=== PATIENT | female | born 1965 | race Caucasian/White ===

== ENCOUNTER → 2024-03-01 08:07 | Outpatient (REF) | payer BC, SELFPAY ==
[2024-03-01 08:35] VITALS: BP 122/72; BP_SYST 70
== END ==
LOC: RADI 08:07
PROVIDERS: ATTENDING PHYSICIAN Internal Medicine Rheumatology; FAMILY PHYSICIAN Family Medicine
DX: T82.594A Other mechanical complication of infusion catheter, initial encounter (principal); Y82.8 Other medical devices associated with adverse incidents
CPT/HCPCS: 76000

== ENCOUNTER → 2024-03-14 06:49 | Outpatient (REF) | payer BC, SELFPAY ==
[2024-03-14] VITALS (9 sets, daily range): BP systolic 76–137; BP diastolic 68–84
[2024-03-14] MEDS: VANCOCIN 200 IV (08:17)
--- NOTE | 2024-03-14 10:25 | PTCARENOTE ---
[facility] note: During procedure Around 904, patient started coughing, trouble breathing and noticed redness on her face. Vancomycin Infusion stopped (151 ml Vancomycin infused per IV pump). Vitals stable, SPO2 99% on 2L during procedure.
notified and Benadryl 25mg IV x 1 dose given. Procedure completed. and patient back to [facility] holding. HOB elevated. SPO2 99-100% on RA. patient stated that ' I am feeling better now, my breathing is better'. closely monitored patient in recovery
area. Vancomycin added to her allergy list after Dr. Haley agreed that vancomycin may have caused her symptoms.
== END ==
LOC: RADI 06:49
PROVIDERS: ATTENDING PHYSICIAN Radiology Vascular & Interventional Radiology; FAMILY PHYSICIAN Family Medicine; REFERRING PHYSICIAN Internal Medicine Rheumatology
DX: T82.594A Other mechanical complication of infusion catheter, initial encounter (principal); Y82.8 Other medical devices associated with adverse incidents; M32.9 Systemic lupus erythematosus, unspecified; R05.9 Cough, unspecified; R07.89 Other chest pain; T36.8X5A Adverse effect of other systemic antibiotics, initial encounter
CPT/HCPCS: 36561; 36590; 76937; 77001; 99152; 99153; C1788